=== PATIENT | female | born 1955 | race Hispanic/Latino ===

== ENCOUNTER → 2019-09-30 | Outpatient (CLI) | payer OTHER | END | disposition home or self-care (01) | LOC: OIH 14:02 | PROVIDERS: ATTEND Internal Medicine | DX: M19.041 Primary osteoarthritis, right hand (principal); M19.042 Primary osteoarthritis, left hand; M06.4 Inflammatory polyarthropathy | CPT/HCPCS: 73130 ==

== ENCOUNTER → 2025-01-18 | Outpatient (CLI) | payer OTHER, MEDICARE ==
--- NOTE | 2025-01-18 18:21 | HMCSR ---
APPROVED REPORT EXAM: Two-dimensional and M-mode echocardiogram with Doppler and color Doppler. INDICATION ICD: Shortness of breath R06.02 Chest Pain 2D Dimensions RVDd3.0 cmLVEF(%)62.0 (>50%)LVED Vol(simp.)42.0 mL IVSd0.5 (0.7-1.1cm)FS(%)33 %LVES Vol(simp.)18.0 mL LVDd3.8 (3.8-5.6cm)LA (2D)3.0 (1.6-4.0cm)LVEF(%, simp.)57 % PWd0.8 (0.7-1.1cm)Ao Root(2D)2.5 (2.0-3.7cm)LA ESV INDEX (BP)18.15 mL/m2 IVSs0.7 cmLVOT diam1.9 (1.8-2.4cm) LVDs2.6 (2.5-4.0cm)IVC diam1.3 cm PWs0.8 cm M-Mode Dimensions EPSS0.5 cm LA (MM)3.1 (1.6-4.0cm) Ao Root(MM)2.4 (2.0-3.7cm) Aortic Valve AoV Vmax1.2 m/[place] GR5.8 mmHgLVOT Vmax1.1 m/s AoV VTI0.2 mAo Mean GR3.5 mmHgLVOT VTI0.23 m MISSAEL (VMAX)2.67 cm2AVA (VTI) 2.7 cm2 Mitral Valve MV E Vmax71.6 cm/sDECEL Nftv740 ms MV A Vmax62.7 cm/sP 1/2 T31 ms E/A ratio1.1MVA (PHT)7.0 cm2 TDI E/E' Zdnuhn82.1E/E' Lateral8.6 Medial E' Peak V7.11 cm/sLateral E' Peak V8.34 cm/s Pulmonary Valve PV Vmax1.0 m/sPV VTI0.21 mPV Mean GR2.2 mmHg PV Peak GR4.3 mmHg Tricuspid Valve TR Vmax2.0 m/sRAP (EST) 3 biRlMQFT95.0 mmHg TR Peak GR17.0 mmHg Left Ventricle The left ventricle is normal size. There is normal left ventricular wall thickness. LVEF is 55-60%. T he left ventricular diastolic function is normal. Right Ventricle The right ventricle is normal size. The right ventricular systolic function is normal. Atria The left atrium size is normal. The right atrium size is normal. Aortic Valve The aortic valve is normal in structure. No aortic regurgitation is present. There is no aortic valvu lar stenosis. Mitral Valve The mitral valve is normal in structure. There is no mitral valve regurgitation noted. There is no mi tral valve stenosis. Tricuspid Valve The tricuspid valve is normal in structure. There is mild tricuspid valve regurgitation noted. Pulmonic Valve The pulmonary valve is normal in structure. There is no pulmonic valvular regurgitation. Great Vessels The aortic root is normal in size. The IVC is normal in size and collapses >50% with inspiration. Pericardium There is no pericardial effusion. Other Information Quality : Adequate Conclusion The left ventricle is normal size. LVEF is 55-60%. The left ventricular diastolic function is normal. The right ventricle is normal size. The right ventricular systolic function is normal. The left atrium size is normal. The right atrium size is normal. There is mild tricuspid valve regurgitation noted. There is no pericardial effusion.
== END | disposition home or self-care (01) ==
LOC: RAH 12:46
PROVIDERS: ATTEND Internal Medicine
DX: I07.1 Rheumatic tricuspid insufficiency (principal); R07.9 Chest pain, unspecified; R06.02 Shortness of breath
CPT/HCPCS: 93306